=== PATIENT | female | born 1990 | race American Indian/Alaskan Native ===

== ENCOUNTER 2025-04-25 20:54 | Emergency (ER) | payer MEDICAID, SELFPAY ==
[2025-04-25 20:55] VITALS: BP 144/102; PULSE 98; RESP 16; TEMP 36.8; O2SAT 99; BMI 34.0
--- NOTE | 2025-04-25 21:03 | EDNOTE_ITS ---
Altered Mental Status RME/HPI General Chief Complaint: Altered Mental Status Stated Complaint: AMS Time Seen by Provider: 04/25/25 21:17 Arrival date/time: 04/25/25 20:54 RME / HPI RME / HPI narrative: This section includes all my notes and documentations, including HPI, PE, and ED course. Twan Baig MD HPI: 34yo female with a history of HTN BIBA from the streets with altered mental status. Can't obtain detailed history from the patient due to decreased mental status. Per EMS, patient was given Narcan by bystanders when she was found unresponsive. Uncertain if it helped or not.patient admits to alcohol and methamphetamine. No other obvious complaints. ROS: Unable to obtain detailed ROS from the patient due to current clinical condition. Physical Exam: General: Severely lethargic. Eyes: Conjunctivae and lids clear. EOMI. PERRL. ENT: No signs of head trauma. Neck: Supple. No tenderness. Heart: RRR. Lungs: No respiratory distress. Good air movement. No significant rhonchi, wheezing, rales. Chest no tenderness. Abdomen: Soft and nontender. Normal bowel sounds. No distension. No rebound or guarding. Back: No tenderness. Skin: Warm and dry. Neuro: Cranial nerves II 12 grossly normal. No peripheral motor deficits. Musculoskeletal:? All major joints and bones are not tender with no limited ROM. I reviewed EMS notes. I reviewed all diagnostic test results. My interpretation of the EKG is sinus rhythm with no acute ST-T changes. My interpretation of the chest x-ray is NAD. My review of the CT head report is unremarkable. My review of the CT cervical spine report is no acute fracture. Blood tests are unremarkable except for Blood Alcohol 68.9. UDS is positive for methamphetamine. UA showed positive nitrite, positive leukocyte esterase, WBC, and bacteria. At this point, diagnoses include AMS, methamphetamine intoxication, alcohol intoxication, and UTI. Treatment here included NS, Zofran, Narcan, and Rocephin. No improvement noted with Narcan. At 6 AM on 04/26/2025, the care of the patient was transferred to Dr. ARIZMENDI. During my watch, the patient remained stable. Twan Baig MD Related Data Previous Rx's ?Medication ?Instructions ?Recorded ibuprofen 600 mg tablet 600 mg PO Q8H PRN pain #40 t abs 06/14/24 Allergies Allergy/AdvReac Type Severity Reaction Status Date / Time No Known Allergies Allergy Verified 03/01/22 12:54 Review of Systems Review of Systems ROS Unobtainable: other (unobtainable due to the patient not remembering the event) Past Medical History Past Medical History NEUROLOGIC: Positive Seizures and Head Trauma; Negative Neurological Disorders CARDIAC: Positive Hypertension; Negative Cardiac Disorders or Congestive Heart Failure RESPIRATORY: Positive Pneumonia (2021); Negative Chronic Obstructive Pulmonary Disease (COPD) or Asthma GASTROINTESTINAL: Positive Gastrointestinal Disorders (cholelithiasis) GENITOURINARY: Positive Genitourinary Disorders; Negative Renal Disease REPRODUCTIVE: Positive Previous Pregnancies MUSCULOSKELETAL: Positive Musculoskeletal Disorders ENT: Positive Head Trauma ENDOCRINE: Positive Endocrine Disorders; Negative Diabetes Mellitus Type 1 or Diabetes Mellitus Type 2 HEMATOLOGIC: Negative Blood Disorders, Anemia, Leukemia, Hemophilia, Thalassemia, Sickle Cell Disease or Clotting Problems PSYCHO/SOCIAL: Positive Depression and Anxiety OTHER HISTORY: Negative Blood Transfusions, Blood Transfusion Reaction, Anesthesia Reactions or Cancer Surgical History SURGICAL: Positive Section Social History SMOKING STATUS: Current every day smoker SUBSTANCE USE: former substance user ED Exam Narrative Physical exam: As noted in HPI. Course Course Course Narrative: CXR is ordered for determining the etiology of altered mental status. Quality Measures none Orders Category Date Time Status EKG (ED ONLY) *Do not use* NOW Care 04/25/25 21:04 Completed Saline [Insert IV] NOW Care 04/25/25 21:03 Active Straight [In and Out Catheter] X1 Care 04/25/25 21:[address] cervical spine wo con Stat Exams 04/25/25 21:[address] head/brain wo con Stat Exams 04/25/25 21:04 Completed EKG (ED Only) Stat Exams 04/25/25 21:04 Draft XR chest 1V portable Stat Exams 04/25/25 21:04 Completed Acetaminophen Stat Lab 04/25/25 22:22 Completed Alcohol, Blood Medical Stat Lab 04/25/25 22:22 Completed Ammonia Stat Lab 04/25/25 22:22 Completed Bilirubin,Direct Stat Lab 04/25/25 22:22 Completed CBC Stat Lab 04/25/25 22:22 Completed CK [Creatine Kinase] Stat Lab 04/25/25 22:22 Completed CMP [Comprehensive Metabolic Panel] Stat Lab 04/25/25 22:22 Completed Drug Screen,Urine Stat Lab 04/26/25 00:26 Completed HCG,Qualitative Serum Stat Lab 04/25/25 22:22 Completed Magnesium Stat Lab 04/25/25 22:22 Completed PT [Prothrombin Time with INR] Stat Lab 04/25/25 22:22 Completed PTT [Partial Thromboplastin Time] Stat Lab 04/25/25 22:22 Completed Salicylate Stat Lab 04/25/25 22:22 Completed Troponin I Stat Lab 04/25/25 22:22 Completed UA, C/S IF [Urinalysis, C/S if Indicated] Stat Lab 04/26/25 00:26 Completed Urine Culture Stat Lab 04/26/25 00:26 Received VBG [Venous Blood Gas] Stat Lab 04/25/25 22:22 Completed NALOXONE INJ (Vial) [Narcan Inj (Vial)] Med 04/26/25 00:06 Discontinued 0.4 mg IV X1 ONE NALOXONE INJ (Vial) [Narcan Inj (Vial)] Med 04/25/25 23:49 Discontinued 2 mg IV X1 ONE Ondansetron Inj [Zofran Inj] Med 04/25/25 21:03 Discontinued 4 mg IVP X1 ONE Sodium Chloride 0.9% 1000 ml [Ns] 1,000 ml Med 04/25/25 21:03 Discontinued IV 999 mls/hr Sodium Chloride 0.9% 1000 ml [Ns] 1,000 ml Med 04/26/25 00:26 Discontinued IV 999 mls/hr Sodium Chloride 0.9% 1000 ml [Ns] 1,000 ml Med 04/26/25 03:22 Ordered IV 999 mls/hr cefTRIAXone/D5w 1gm IV premix [Rocephin/D5w 1gm IV Med 04/26/25 01:01 Dis continued premix] 1 gm in 50 ml IV X1 Vital Signs Vital signs: Vital Signs Temperature 98.3 F 04/25/25 20:55 Pulse Rate 98 04/25/25 20:55 Respiratory Rate 16 04/25/25 20:55 Blood Pressure 144/102 H 04/25/25 20:55 Pulse Oximetry (%) 99 04/25/25 20:55 Oxygen Delivery Method Room Air 04/25/25 20:55 Altered Mental Status MDM Narrative MDM Narrative:: Scribe Attestation: 04/25/25 - Addis Lopez am scribing for and in the presence of Dr. Baig. 34yo female with a history of HTN BIBA from the streets presents to the ED for a chief complaint of altered mental status. Per EMS, patient was found passed out in the streets, reporting bystanders called 911. Per EMS, patient was given Narcan 4mg by bystanders, but it is unknown if it helped the patient or not. Bella candelaria is awake, stating she drank alcohol and used methamphetamines today, but does not remember what happened. No other complaints reported. Patient data External records reviewed:: [facility] previous records (Per chart review, patient was admitted here on 06/11/24 for left foot cellulitis.) and EMS form Clinical information provided by:: patient and EMS Social determinants that could affect healthcare access:: substance use (methamphetamine and alcohol use) Patient has the following chronic illnesses:: HTN How is presenting disease/condition affected by chronic disease/condition?: uneffected by Evaluation data The following diagnostics were reviewed and interpreted by me:: lab results, radiology exam(s) and EKG tracing(s) (My interpretation of the EKG: NSR (91 bpm) with no ST-T changes. Twan Baig MD) Lab and/or radiology exams considered but not ordered:: none Interpretation Summary: I reviewed all diagnostic test results. My interpretation of the EKG is sinus rhythm with no acute ST-T changes. My interpretation of the chest x-ray is NAD. My review of the CT head report is unremarkable. My review of the CT cervical spine report is no acute fracture. Blood tests are unremarkable except for Blood Alcohol 68.9. UDS is positive for methamphetamine. UA showed positive nitrite, positive leukocyte esterase, WBC, and bacteria. Medications / Prescriptions Medications or Prescriptions considered but not ordered:: none Medication administrations:: Medication Administration History Sodium Chloride (Ns) 1,000 mls @ 999 mls/hr IV .Q1H1M ONE Stop: 04/26/25 04:22 Discontinued Medications Sodium Chloride (Ns) 1,000 mls @ 999 mls/hr IV .Q1H1M ONE Stop: 04/25/25 22:03 Last Infusion: 04/25/25 22:50 Dose: Infused Documented By: Admin: 04/25/25 21:41 Dose: 999 mls/hr Documented By: DT Sodium Chloride (Ns) 1,000 mls @ 999 mls/hr IV .Q1H1M ONE Stop: 04/26/25 01:26 Last Infusion: 04/26/25 01:33 Dose: Infused Documented By: Admin: 04/26/25 00:32 Dose: 999 mls/hr Documented By: DT Ceftriaxone Sodium/Dextrose (Rocephin/D5w 1gm Iv Premix) 1 gm in 50 mls @ 100 mls/hr IV X1 ONE Stop: 04/26/25 01:30 Last Infusion: 04/26/25 01:39 Dose: Infused Documented By: Admin: 04/26/25 01:08 Dose: 100 mls/hr Documented By: CVL Naloxone HCl (Naloxone Inj 0.4 Mg/Ml Vial) 2 mg IV X1 ONE Stop: 04/25/25 23:50 Last Admin: 04/26/25 00:05 Dose: Not Given Documented By: LAZARA Non-Admin Reason: Cancelled by Provider Naloxone HCl (Naloxone Inj 0.4 Mg/Ml Vial) 0.4 mg IV X1 ONE Stop: 04/26/25 00:07 Last Admin: 04/26/25 00:14 Dose: 0.4 mg Documented By: LAZARA Co-signed By: SUSAN Ondansetron HCl (Ondansetron Inj 2 Mg/Ml Inj 2 Ml) 4 mg IVP X1 ONE; Protocol Stop: 04/25/25 21:04 Last Admin: 04/25/25 21:44 Dose: 4 mg Documented By: LAZARA CARDENAS, Rachel Vegas, Rocephin Consultations Consultation(s) initiated? (list below): No Diagnosis Differential diagnosis altered mental status: alcoholic intoxication, altered mental status, delirium, dementia, hypoglycemia, hyponatremia, subarachnoid hemorrhage and sepsis Most likely diagnosis given after review of the tests above:: AMS, methamphetamine tox occasion, alcohol intoxication, UTI Admission Indicated Admission indicated?: not indicated Explain why admission is indicated or not indicated:: Made decision to monitor in the ED. Admission Request Was there a request for admission?: No Disposition Plan Disposition Plan: other (specify) (Care of the patient was transferred to Dr. ARIZMENDI.) Discharge Plan Prescriptions/Referrals Prescriptions/Med Rec: No Action ibuprofen 600 mg tablet 600 mg PO Q8H PRN (Reason: pain) Qty: 40 0RF Referrals: Zan Echeverria MD [Primary Care Provider] - In 1 week Problem List Clinical Impression: AMS (altered mental status), Alcohol intoxication, Methamphetamine intoxication, UTI (urinary tract infection) Patient/Caregiver Discharge Instructions Print Language: [place]
--- NOTE | 2025-04-25 21:04 | XR_ITS ---
Examination: CT brain head without contrast. 2-D sagittal coronal reconstructions Date and time of exam:April 25, 2025 11:21 PM INDICATIONS: Injury to the head today, head pain and altered mental status CTDI: vol (mGy):57 DLP: (mGycm):1047 Technique: Multiple CT axial sections of the brain have been obtained, 5 mm slice thickness. Contrast has not been administered. 2-D sagittal, coronal reconstructions have been obtained Low dose protocols were performed. One or more of the following dose reduction techniques were used; automated exposure control, adjustment of the mA and/or KV according to patient size, use of iterative reconstruction technique. Findings: No significant ventricular enlargement. Intra-axial or extra-axial hemorrhage density is not seen. No mass effect or midline shift Basal cisterns are not remarkable. Fourth ventricle is midline. Cranial vault intact. Impression: Negative for acute hemorrhage, mass effect or midline shift
--- NOTE | 2025-04-25 21:04 | XR_ITS ---
Examination: AP chest single view TECHNIQUE: AP portable semiupright chest single view Date and time: April 25, 2025 1039 hours INDICATION: Shortness of breath chest pain today. FINDINGS: Atelectasis versus early pneumonia left base Normal heart size The osseous structures are intact IMPRESSION: Atelectasis versus early pneumonia left base, clinical correlation advised
--- NOTE | 2025-04-25 21:04 | EKG_ITS ---
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
--- NOTE | 2025-04-25 21:04 | XR_ITS ---
Examination: CT cervical spine without contrast 2-D sagittal reconstructions 2-D coronal reconstructions 3-D reconstructions. Exam date and time:April 25, 2025 11:21 PM INDICATIONS: Injury to the neck today, neck pain CTDI:vol (mGy) 10 DLP: (mGycm) 230 Technique: Multiple 2 mm axial sections of the cervical spine have been obtained. The coronal and sagittal reconstructions have been obtained. 3-D reconstructions have been obtained. Low dose protocols were performed. One or more of the following dose reduction techniques were used; automated exposure control, adjustment of the mA and/or KV according to patient size, use of iterative reconstruction technique. Findings: Axial sections demonstrate intact base of the skull. C1 exhibit satisfactory relationship to the odontoid. No acute cervical vertebral body fracture seen. Alignment posterior spinous processes satisfactory. Impression: No acute cervical fracture.
[2025-04-25] MEDS: SODIUM CHLORIDE 0.9% 1000 ML 1,000 ML 999 ML IV (21:41)
[2025-04-25] MEDS: ONDANSETRON INJ 2 MG/ML INJ 2 ML 4 MG IVP (21:44)
[2025-04-25 22:00] VITALS: BP 127/95; PULSE 88; RESP 14; TEMP 36; O2SAT 99
[2025-04-25 22:32] LABS: Base Excess, Venous -2 (-3-3); O2 Saturation, Venous 100 % (96-97); PCO2, Venous 29 mmHg (36-56); PO2, Venous 109 mmHg (15-58); pH, Venous 7.45 (7.33-7.66)
[2025-04-25 22:50] LABS: Basophils % (Auto) 1 % (0-2.5); Eosinophils # (Auto) 0.1 Thou/mm3 (0.0-0.5); Eosinophils % (Auto) 2 % (0-10); Hematocrit 36.6 % (36.0-46.0); Hemoglobin 12.9 g/dL (12.0-16.0); Immature Granulocytes % (Auto) 0 % (0-0); Immature Granulocytes Auto 0.02 Thou/mm3 (0.00-0.00); Lymphocytes % (Auto) 34 % (10-50); Mean Corpuscular HGB Conc 35.2 g/dl (31.0-37.0); Mean Corpuscular Hemoglobin 31.7 pg (25.0-35.0); Mean Corpuscular Volume 90 fL (80-100); Monocytes # (Auto) 0.6 Thou/mm3 (0.0-0.8); Monocytes % (Auto) 11 % (0-12); Neutrophils # (Auto) 3.1 Thou/mm3 (1.8-7.7); Neutrophils % (Auto) 53 % (37-80); Nucleated Red Blood Cell % 0 /100 WBC (0); Platelet Count 242 Thou/mm3 (140-440); RDW Standard Deviation 39.8 fL (36.4-46.3); Red Blood Count 4.07 Miln/mm3 (4.00-5.20); White Blood Count 5.9 Thou/mm3 (3.6-11.0)
[2025-04-25 22:55] LABS: Ammonia < 10 uMol/L (11-32)
[2025-04-25 22:59] LABS: Partial Thromboplastin Time 22.6 Seconds (22.0-36.0); Prothrombin Time 11.4 Seconds (9.0-12.2)
[2025-04-25 23:46] LABS: HCG,Qualitative Serum Negative
[2025-04-26] MEDS: NALOXONE INJ 0.4 MG/ML VIAL IV (00:14)
[2025-04-26 00:28] VITALS: BP 102/75; PULSE 76; RESP 16; TEMP 37; O2SAT 98
[2025-04-26 00:32] LABS: Collection Type, Urine Clean Catch
[2025-04-26] MEDS: SODIUM CHLORIDE 0.9% 1000 ML 1,000 ML 999 ML IV ×2 (00:32→03:32)
[2025-04-26 00:44] LABS: Amphetamine/Methamp Scrn,U Positive (Negative); Barbiturate Screen,Urine Negative (Negative); Benzodiazepines Screen,Urine Negative (Negative); Benzoylecgonine Screen, Ur Negative (Negative); Fentanyl Screen,Urine Negative (Negative); Opiate Screen,Urine Negative (Negative); THC Screen,Urine Negative (Negative)
[2025-04-26 00:46] LABS: Acetaminophen < 2.0 mcg/mL (10.0-20.0); Alanine Aminotransferase 15 U/L (10-49); Albumin, Serum 3.6 gm/dL (3.5-5.0); Alcohol, Blood Medical 68.9 mg/dL (0-10.0); Alkaline Phosphatase 67 U/L (46-116); Anion Gap 11 (7-16); Aspartate Amino Transferase 28 U/L (0-34); BUN/Creatinine Ratio 26 Ratio (12-20); Bilirubin,Direct < 0.1 mg/dL (0.0-0.3); Blood Urea Nitrogen 13 mg/dL (9-23); Calcium 7.8 mg/dL (8.3-10.6); Calcium (Corrected) 8.1 mg/dL (8.5-10.1); Carbon Dioxide 20.8 mMol/L (20.0-31.0); Chloride 112 mMol/L (98-107); Creatine Kinase 128 U/L (34-171); Creatinine (Component) 0.5 mg/dL (0.6-1.3); Estimated Creatinine Clearance 201.9 mL/min (>60); Glucose 117 mg/dL (74-106); Magnesium 1.6 mg/dL (1.6-2.6); Osmolality,Calculated 287 (275-295); Potassium 4.3 mMol/L (3.4-5.1); Sodium 144 mMol/L (136-145); Troponin I < 0.002 ng/mL (0.0-0.045); eGFR > 60 See Note
[2025-04-26 00:48] LABS: Clarity,Urine Clear (Clear/Hazy); Color,Urine Yellow (Lt Yel-Yel); Glucose, Urine Negative (Negative)
[2025-04-26 00:49] LABS: Bilirubin,Urine Negative (Negative); Blood,Urine Negative (Negative); Culture Indicated,Urine Yes; Ketones,Urine Negative (Negative); Leukocyte Esterase,Urine 1+ (Negative); Nitrite,Urine Positive (Negative); Protein,Urine Negative (Neg - Trace); Urobilinogen,Urine 0.2 mg/dL (0.0-1.0)
[2025-04-26 00:52] LABS: RBC,Urine 4 /hpf (0-3); WBC,Urine 15 /hpf (0-5)
[2025-04-26 00:53] LABS: Bacteria,Urine 4+; Calcium Phosphate Crystals,Ur 1+; Squamous Epithelial Cell,Urine 6 /hpf (0-5)
[2025-04-26 01:01] LABS: Albumin/Globulin Ratio 1.3 (1.2-2.2); Bilirubin,Total 0.2 mg/dL (0.3-1.2); Globulin 2.7 gm/dL (2.3-3.5); Salicylate < 3.0 mg/dL; Total Protein 6.3 gm/dL (5.7-8.2)
[2025-04-26] MEDS: cefTRIAXone/D5w 1gm IV premix 1 GM/50 ML BAG IV (01:08)
[2025-04-26 02:00] VITALS: BP 118/78; PULSE 85; RESP 14; TEMP 37; O2SAT 99
[2025-04-26 04:00] VITALS: BP 125/85; PULSE 85; RESP 14; TEMP 37; O2SAT 99
[2025-04-26 06:00] VITALS: BP 125/85; PULSE 75; RESP 14; TEMP 37; O2SAT 99
[2025-04-26 08:27] VITALS: BP 118/97; PULSE 90; RESP 19; TEMP 36.4; O2SAT 97
--- NOTE | 2025-04-26 09:19 | PC.NURSE ---
Patient woke up and ate with no difficulty. Patient resting with eyes closed at this time. Respiration even and unlabored.
--- NOTE | 2025-04-26 09:50 | PD.EDADDENDU ---
Emergency Room Addendum Addendum Narrative: 0600: Care assumed from Dr. Baig, the previous shift emergency physician. Past medical, surgical, social and family history reviewed. Vitals and home medications reviewed. I will assume the care of the patient at this time, pending reassessment and final disposition. Please refer to the emergency department record for history and examination from initial visit.?The following addendum documentation note is intended to reflect any pending information, findings, or radiology results not included in the patient?s initial chart. 0945: Notified by RN that the patient is awake and walked to the restroom without difficulty. Also reported patient ate breakfast and tolerated well. Patient has remained stable through ED course. Will DC home.
[2025-04-26 10:21] VITALS: BP 100/65; PULSE 94; RESP 17; TEMP 36.6; O2SAT 97
== END 2025-04-26 10:37 | disposition home or self-care (01) ==
PROVIDERS: Emergency Medicine; Emergency Provider Emergency Medicine; PCP Family Medicine
DX: R41.82 Altered mental status, unspecified (principal); F10.129 Alcohol abuse with intoxication, unspecified; F15.129 Other stimulant abuse with intoxication, unspecified; N39.0 Urinary tract infection, site not specified; I10 Essential (primary) hypertension; Y90.3 Blood alcohol level of 60-79 mg/100 ml
CPT/HCPCS: 51701; 36415; 70450; 71045; 72125; 80053; 80307; 80320; 80329; 81001; 81025; 82140; 82248; 82550; 82803; 83735; 84484; 84703; 85025; 85610; 85730; 87077; 87086; 87186; 93005; 96361; 96365; 96375; 99284; J0696; J2310; J2405; J7030; G0480